=== PATIENT | male | born 1970 | race Caucasian/White ===

== ENCOUNTER 2016-12-13 06:33 | Emergency (ER) | payer BC, OTHER ==
[2016-12-13 06:56] VITALS: BP 122/78
[2016-12-13] MEDS ORDERED: methylPREDNISolone Sodium Succinate 125 MG/2 ML SDV IVPUSH ONE (07:04)
[2016-12-13] MEDS ORDERED: HYDROmorphone 1 MG/ML Syringe IVPUSH ONE ×2 (07:04→08:05)
--- NOTE | 2016-12-13 07:05 | EDM.PDOC ---
ED HPI GENERAL MEDICAL PROBLEM - General Chief Complaint: Back Pain or Injury Stated Complaint: LOW BACK PAIN Time Seen by Provider: 12/13/16 07:00 Source of Information: Reports: Patient History Limitations: Reports: No Limitations - History of Present Illness INITIAL COMMENTS - FREE TEXT/NARRATIVE: 46-year-old male presents to the ED with acute exacerbation of chronic low back pain. He's been seen by Dr. Knox in [place] spine surgeon who referred him to Dr. Mak who is in the [facility] in [facility]. The plan is to pursue bilateral sacroiliac joint fusion. This would have to be one done one side of the time. Overnight he's expressed an acute exacerbation of pain radiating down his right leg. It's excruciating rates it 10 out of 10. It tends to be lancinating and strongly spastic in nature. He has been taking T still able to void and defecate normally. Is very difficult to get on and off the toilet. Mobility is severely limited by back pain. ramadol when necessary 100 mg every 6 hours with Motrin 800 mg every 8 hours for pain relief. Tizanidine which she doesn't feel is helping his all. Patient is been unable to sleep most of the night. Took 20 minutes just to get out to the car this morning. Of note patient was seen down at [facility] last week had an injection cells like lidocaine into his lower back. This reduces pain substantially for the time the last which is 1/2- 2 hours. Exactly sure where he is going next in terms of surgery until after insurance issues get sorted out and Onset: Gradual (Chronic problems with low back pain worse overnight.) Duration: Chronic, Getting Worse Location: Reports: Back Quality: Reports: Burning (Low back pain with right-sided radiculopathy into the but talk and down the leg to the ankle.), Stabbing, Throbbing Severity: Severe Improves with: Reports: None Worsens with: Reports: Movement Context: Denies: Activity, Exercise, Lifting, Sick Contact, Trauma, Other Associated Symptoms: Reports: Loss of Appetite, Malaise, Nausea/Vomiting. Denies: Chest Pain, Cough, cough w sputum, Diaphoresis, Fever/Chills, Rash ( Nausea without any vomiting due to the intensity of pain.), Seizure, Shortness of Breath Treatments SPECIALIST PHYSICIANS: Reports: NSAIDS (Motrin 800 mg every 8-12 hours.) Right Lower Back Pain Score (Numeric/FACES): 10 - Related Data Allergies Allergy/AdvReac Type Severity Reaction Status Date / Time levofloxacin [From Levaquin] Allergy Swollen Verified 12/13/16 06:49 Eyes pregabalin Allergy SEDATION Verified 12/13/16 06:47 Home Meds: Home Meds ALPRAZolam [Xanax] 1 mg PO BID PRN 11/14/13 [History] Sertraline [Zoloft] 100 mg PO DAILY 11/14/13 [History] tiZANidine HCl [Zanaflex] 12 mg PO Q8H 11/14/13 [History] traMADol HCl [Ultram] 50 mg PO Q6H 11/14/13 [History] Zolpidem [Ambien] 10 mg PO ASDIRECTED PRN 12/05/13 [History] Diazepam [Valium] 5 mg PO TID PRN #21 tablet 12/13/16 [Rx] oxyCODONE HCl/Acetaminophen [Percocet 10-325 mg Tablet] 1 - 2 each PO Q4H PRN # 30 tablet 12/13/16 [Rx] Past Medical History HEENT History: Reports: Glaucoma Musculoskeletal History: Reports: Other (See Below) Other Musculoskeletal History: Fracture L4; fused neck - Past Surgical History HEENT Surgical History: Reports: Adenoidectomy, Tonsillectomy Social & Family History - Tobacco Use Smoking Status *Q: Current Every Day Smoker Years of Tobacco use: 30 Packs/Tins Daily: 0.5 Used Tobacco, but Quit: No Month Tobacco Last Used: presently using Second Hand Smoke Exposure: Yes - Caffeine Use Caffeine Use: Reports: Coffee, Tea - Recreational Drug Use Recreational Drug Use: No - Living Situation & Occupation Living situation: Reports: Occupation: Employed ED ROS GENERAL - Review of Systems Review Of Systems: See Below Constitutional: Reports: Weakness, Fatigue, Decreased Appetite. Denies: Fever, Chills, Malaise, Weight Loss HEENT: Reports: No Symptoms Respiratory: Reports: No Symptoms Cardiovascular: Reports: No Symptoms Endocrine: Reports: No Symptoms GI/Abdominal: Reports: Constipation (Intermittent occasional problems with constipation), Nausea : Reports: No Symptoms Musculoskeletal: Reports: Back Pain, Leg Pain (See history of present illness) Skin: Reports: No Symptoms ( right leg pain referred from his back.) Neurological: Reports: Paresthesia (Sciatica right lower extremity with pins and needles and burning sensation) Psychiatric: Reports: Anxiety Hematologic/Lymphatic: Reports: No Symptoms Immunologic: Reports: No Symptoms ED EXAM,LOWER BACK PAIN/INJURY - Physical Exam Exam: See Below Exam Limited By: No Limitations General Appearance: Alert, Severe Distress (No position is comfortable.) Throat/Mouth: Normal Inspection, Other (Tongue is mildly dry.) Respiratory/Chest: Lungs Clear, Normal Breath Sounds, No Accessory Muscle Use, Respiratory Distress (Mildly tachypneic but he is hyperventilating due to the pain.) Cardiovascular: Normal Peripheral Pulses, Regular Rate, Rhythm, No Edema, No Gallop, No Murmur Back Exam: Normal Inspection, Decreased Range of Motion, Vertebral Tenderness ( Throughout the lumbar vertebrae particularly 34 and 5 bilaterally perhaps worse on the right side over on compression of the facet joints.). No: Full Range of Motion, CVA Tenderness (L), CVA Tenderness (R), Muscle Spasm Extremities: Normal Inspection Neurological: Alert, CN II-XII Intact, Oriented x 3. No: Normal Gait, Normal Reflexes DTR - Lower Extremities: 0: Ankle (R), 1+: Knee (R), Knee (L), Ankle (L) Psychiatric: Anxious, Tearful Skin Exam: Warm, Dry, Intact, Normal Color, No Rash Course - Vital Signs Last Recorded V/S: Last Vital Signs Temp 35.7 C 12/13/16 06:49 Pulse 84 12/13/16 06:49 Resp 22 H 12/13/16 06:49 BP 122/78 12/13/16 06:49 Pulse Ox 98 12/13/16 06:49 - Orders/Labs/Meds Meds: Medications Discontinued Medications Generic Name Dose Route Start Last Admin Trade Name Freq PRN Reason Stop Dose Admin Diazepam 5 mg 12/13/16 07:05 12/13/16 07:21 Valium IVPUSH 12/13/16 07:06 5 mg ONETIME ONE Administration Diazepam 5 mg 12/13/16 09:29 12/13/16 09:33 Valium IVPUSH 12/13/16 09:30 5 mg ONETIME ONE Administration Fentanyl 50 mcg 12/13/16 09:29 12/13/16 09:35 Sublimaze IVPUSH 12/13/16 09:30 50 mcg ONETIME ONE Administration Hydromorphone HCl 1 mg 12/13/16 07:04 12/13/16 07:18 Dilaudid IVPUSH 12/13/16 07:05 1 mg ONETIME ONE Administration Hydromorphone HCl 1 mg 12/13/16 08:05 12/13/16 08:10 Dilaudid IVPUSH 12/13/16 08:06 1 mg ONETIME ONE Administration Dextrose/Sodium Chloride 1,000 mls @ 150 mls/hr 12/13/16 07:15 12/13/16 07:16 Dextrose 5%-Normal Saline IV 150 mls/hr ASDIRECTED JERRELL Administration Ketorolac Tromethamine 30 mg 12/13/16 07:15 12/13/16 07:21 Toradol IVPUSH 30 mg ONETIME JERRELL Administration Methylprednisolone Sodium Succinate 125 mg 12/13/16 07:04 12/13/16 07:23 Solu-Medrol IVPUSH 12/13/16 07:05 125 mg ONETIME ONE Administration - Radiology Interpretation Free Text/Narrative:: 46-year-old male presents to the ED with complaints of increased lower back pain. He is a chronic low back pain issues has been seeing spinal surgeons. 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 Dr. Knox referred him to Dr. Mak at [facility] in [place] whom he did see last week. They're waiting basically permission to go out of [facility] for surgery and insurances to pay for potential SI joint fusion bilaterally. His pain is present all the time but usually controlled with tramadol tizanidine value and high-dose Motrin. Pain started about 2:30 this morning with lancinating shooting pain down the right posterior buttock down his leg which is worsened when he's expressed in the past. No etiology for this site no falls trips or injuries. He has had multiple MRIs of his lower back and therefore imaging is not indicated. He has tried steroid injections with minimal relief. Plan is trying to manage his pain. At present we'll start an IV of D5 normal saline at 150 mils per hour. Given Dilaudid 1 mg IV with Solu-Medrol 125 mg IV and Valium 5 mg IV and Toradol 30 mg IV for acute pain relief. - Re-Assessments/Exams Free Text/Narrative Re-Assessment/Exam: 12/13/16 08:00: Pain still rated as 7 out of 10. Repeat Dilaudid 1 mg IV. 12/13/16 09:29 patient states his pain is essentially unchanged to 7 out of 10. Will try fentanyl 50 g IV and repeat the volume 5 mg IV. I'm not confident will gain control of the pain due to neurogenic source. 12/13/16 10:38 CT of his lumbar spine done without contrast reveals essentially no changes compared to his most recent MRI done here. There are slight circumferential disc bulge at L3-L4 L4-L5 and L5-S1 but no evidence of neural foraminal encroachment is appreciated any of these levels. There is a coincidental finding of a limbus vertebra noted off the anterior and superior endplate of L4 vertebra. He had does not have a complete fusion of his sacrum at S1-S2 level. 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 I suspect it is the S1 nerve root at that is causing his sciatica pain. I will discharge him on Percocet 10//25 milligrams tabs one or 2 every 4-6 hours as needed for pain relief. Valium 5 mg every 8 hours when necessary for muscle spasm. Given to excuse him from the work place for the next 2-3 days. He will follow-up with his normal care provider in 2-3 days time to see how he is making out. Will likely require referral to chronic pain management. Departure - Departure Time of Disposition: 10:54 Disposition: Home, Self-Care 01 Condition: Poor Clinical Impression: Acute exacerbation of chronic low back pain Chronic right-sided low back pain with sciatica Qualifiers: Sciatica laterality: sciatica of right side Qualified Code(s): M54.41 - Lumbago with sciatica, right side - Discharge Information Prescriptions: Diazepam [Valium] 5 mg PO TID PRN #21 tablet PRN Reason: muscle spams back oxyCODONE HCl/Acetaminophen [Percocet 10-325 mg Tablet] 1 - 2 each PO Q4H PRN # 30 tablet PRN Reason: Severe back pain Instructions: Chronic Back Pain Referrals: Kimmie Conklin NP [Primary Care Provider] - Forms: ED Department Discharge, ED Return to Work/School Form Additional Instructions: Evaluation in the emergency him today in regards to acute exacerbation of low back pain with increased pain and right lower back and right-sided sciatica. You 're treated in the emergency room with intravenous Dilaudid and Valium 5 mg with Toradol 30 mg and one dose of Solu-Medrol or steroids reduce pain and inflammation. The Solu-Medrol won't do much for about 6 hours but it should start to reduce some of the inflammation and pain around the nerve that is causing the pain in his leg. I did write a prescription for Percocet tabs 10/ 325 one or 2 every 4-6 hours for acute pain relief over the next 2-3 days until pain settles down. May use Valium 5 mg every 8 hours when necessary for muscle spasm. CT of the lumbar spine does not reveal any changes compared to previous MRI images. There are no evidence of nerve root entrapment at any of the lumbar vertebra levels. I suspect the sacral nerve root at S1 on the right side is inflamed and causing your current right sided leg pain and pain. Then may return to tramadol 50-100 mg every 6 hours for pain relief. Follow-up with personal physician in this regard.
[2016-12-13] MEDS ORDERED: Dextrose 5%-0.9% NaCl 1,000 ML IV SCH (07:15)
[2016-12-13] MEDS ORDERED: Ketorolac 30 MG/ML SDV IVPUSH SCH (07:15)
[2016-12-13] MEDS ORDERED: fentaNYL 100 MCG/2 ML SDV IVPUSH ONE (09:29)
--- NOTE | 2016-12-13 10:34 | CT ---
CT lumbar spine Technique: Multiple axial sections were obtained from above the T12-L1 disc through the L5-S1 disc. Reconstructed coronal and sagittal images were reviewed. Comparison: Previous MRI lumbar spine exam of 06/19/16. Findings: T11-T12: Disc space narrowing is noted with Schmorl node deformities. Posterior disc has a mostly planar margin. No central canal stenosis or neural foraminal stenosis is seen. L1-L2: Schmorl node deformities are seen. Posterior disc is preserved. No central canal stenosis or neural foraminal stenosis is seen. L2-L3: Slight Schmorl node deformities are seen. Posterior disc has a planar margin. No central canal stenosis is seen. Neural foramina appear to be patent. L3-L4: Slight circumferential disc bulge is seen. Minimal degenerative apophyseal change is seen. No central canal stenosis is seen. Neural foramina are patent where the nerve roots exit. Incidental limbus vertebra noted off the anterior and superior endplate of L4. L4-L5: Slight circumferential disc bulge is seen. Posterior disc has a mostly planar margin. No central canal stenosis is seen. Neural foramina are patent where the nerve roots exit. L5-S1: Mild diffuse posterior disc bulge is seen. Neural foramina are patent where the nerve roots exit. No central canal stenosis is seen. No acute fracture or abnormal subluxation is seen. Impression: 1. Mild degenerative change as noted above. No focal disc herniation, central canal stenosis or neural foraminal stenosis is seen. 2. Findings are fairly stable from prior MRI lumbar spine study of 06/19/16. Diagnostic code #2
== END 2016-12-13 11:26 | disposition home or self-care (01) ==
LOC: JD.ED 06:33
DX: M54.41 Lumbago with sciatica, right side (principal); F17.210 Nicotine dependence, cigarettes, uncomplicated; Z79.899 Other long term (current) drug therapy; Z88.8 Allergy status to other drugs, medicaments and biological substances
CPT/HCPCS: 72131; 96361; 96374; 96375; 96376; 99284; J1170; J1885; J2930; J3010; J3360; J7042

== ENCOUNTER 2017-01-09 13:29 | Emergency (ER) | payer BC, OTHER ==
[2017-01-09] MEDS ORDERED: predniSONE 20 MG Tab PO ONE (14:17)
[2017-01-09] MEDS ORDERED: Ketorolac 60 MG/2 ML SDV IM ONE (14:17)
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
[2017-01-09 16:10] VITALS: BP 97/78
== END 2017-01-09 14:55 | disposition home or self-care (01) ==
LOC: JD.ED 13:29
DX: M53.3 Sacrococcygeal disorders, not elsewhere classified (principal); M54.42 Lumbago with sciatica, left side; M54.41 Lumbago with sciatica, right side; G89.29 Other chronic pain; F17.210 Nicotine dependence, cigarettes, uncomplicated; Z79.899 Other long term (current) drug therapy; Z88.1 Allergy status to other antibiotic agents; Z88.8 Allergy status to other drugs, medicaments and biological substances
CPT/HCPCS: 96372; 99283; A9270; J1885

== ENCOUNTER 2021-08-06 07:29 | Day surgery (SDC) | payer BC ==
[~2021-08-06 07:29] MED LIST: EPINEPHrine 1 MG/ML 30 ML MDV IRR SCH; Lactated Ringers 1,000 ML IV SCH; Lidocaine 1%/Sod Bicarbonate in NS 8.4% 1 ML Syringe IDERM PRN; Sodium Chloride 0.9% 10 ML Syringe FLUSH PRN; Sodium Chloride 0.9% 10 ML Syringe FLUSH SCH
[2021-08-06] MEDS ORDERED: Bupivacaine 0.25% 10 ML SDV ONE (08:44)
[2021-08-06] MEDS ORDERED: Propofol 200 MG/20 ML SDV ONE (08:45)
[2021-08-06] MEDS ORDERED: Lidocaine 1% 4 ML ONE (08:45)
[2021-08-06] MEDS ORDERED: fentaNYL 100 MCG/2 ML SDV ONE (08:45)
[2021-08-06] MEDS ORDERED: Ondansetron 4 MG/2 ML SDV IVPUSH PRN (08:58)
[2021-08-06] MEDS ORDERED: HYDROmorphone 0.5 MG/0.5 ML Syringe IVPUSH PRN (08:58)
[2021-08-06] MEDS ORDERED: fentaNYL 100 MCG/2 ML SDV IVPUSH PRN (08:58)
[2021-08-06] MEDS ORDERED: Ondansetron 4 MG/2 ML SDV ONE (09:24)
[2021-08-06] MEDS ORDERED: Ketorolac 30 MG/ML SDV ONE (09:24)
[2021-08-06] MEDS ORDERED: ceFAZolin 1 GM Vial ONE (09:47)
[2021-08-06] MEDS ORDERED: HYDROmorphone 0.5 MG/0.5 ML Syringe ONE ×3 (09:50→09:55)
[2021-08-06] MEDS ORDERED: oxyCODONE 5 MG Tab PO ONE (10:50)
[2021-08-06 13:54] VITALS: BP 120/78; PULSE 72
== END 2021-08-06 12:40 | disposition home or self-care (01) ==
LOC: JD.SDS 07:29
PROVIDERS: ATTEND Orthopaedic Surgery
DX: S83.242A Other tear of medial meniscus, current injury, left knee, initial encounter (principal); M94.262 Chondromalacia, left knee; F32.A Depression, unspecified; F41.9 Anxiety disorder, unspecified; E78.2 Mixed hyperlipidemia; G47.33 Obstructive sleep apnea (adult) (pediatric); F17.210 Nicotine dependence, cigarettes, uncomplicated; F51.04 Psychophysiologic insomnia; M54.16 Radiculopathy, lumbar region; E66.9 Obesity, unspecified; Z68.29 Body mass index [BMI] 29.0-29.9, adult; Z88.8 Allergy status to other drugs, medicaments and biological substances; Z79.899 Other long term (current) drug therapy; Z90.49 Acquired absence of other specified parts of digestive tract; Z98.890 Other specified postprocedural states
CPT/HCPCS: 29881; A9270; J0171; J0690; J1170; J1885; J2405; J2704; J3010; J3490; J7120; 01400

== ENCOUNTER 2021-09-11 05:50 | Day surgery (SDC) | payer BC ==
[~2021-09-11 05:50] MED LIST changes: -EPINEPHrine 1 MG/ML 30 ML MDV IRR SCH
[2021-09-11] MEDS ORDERED: fentaNYL 100 MCG/2 ML SDV ONE ×2 (05:59→07:01)
[2021-09-11] MEDS ORDERED: Propofol 200 MG/20 ML SDV ONE (05:59)
[2021-09-11] MEDS ORDERED: Midazolam 1 MG/ML 2 ML SDV ONE (05:59)
[2021-09-11] MEDS ORDERED: Bupivacaine 0.25% 10 ML SDV ONE ×2 (06:21→06:38)
[2021-09-11] MEDS ORDERED: Lidocaine 1% 30 ML SDV ONE (06:21)
[2021-09-11 07:35] VITALS: BP 106/63; PULSE 86
[2021-09-11] MEDS ORDERED: ceFAZolin 2 GM Vial ONE (07:59)
[2021-09-11] MEDS ORDERED: Ondansetron 4 MG/2 ML SDV ONE (08:00)
[2021-09-11] MEDS ORDERED: Dexamethasone 4 MG/ML 5 ML MDV ONE (08:00)
== END 2021-09-11 08:10 | disposition home or self-care (01) ==
LOC: JD.SDS 05:50
PROVIDERS: ATTEND Orthopaedic Surgery
DX: G56.13 Other lesions of median nerve, bilateral upper limbs (principal); F32.A Depression, unspecified; F41.9 Anxiety disorder, unspecified; G47.33 Obstructive sleep apnea (adult) (pediatric); G89.29 Other chronic pain; F17.210 Nicotine dependence, cigarettes, uncomplicated; G47.00 Insomnia, unspecified; E66.9 Obesity, unspecified; E78.00 Pure hypercholesterolemia, unspecified; Z88.8 Allergy status to other drugs, medicaments and biological substances; Z90.49 Acquired absence of other specified parts of digestive tract; Z79.899 Other long term (current) drug therapy
CPT/HCPCS: 20526; J2250; J2704; J3010; J3490; J7120; 01810; J0690; J1100; J2405

== ENCOUNTER 2022-01-05 06:46 | Day surgery (SDC) | payer BC ==
[~2022-01-05 06:46] MED LIST changes: +Acetaminophen 325 MG Tab PO SCH; +Morphine 8 MG, EPINEPHrine 0.3 MG, Cefuroxime 750 MG, Ketorolac 30 MG, Sodium Chloride ... PRN; +oxyCODONE ER 10 MG TAB.ER PO SCH
[2022-01-05] MEDS ORDERED: Tranexamic Acid 1,000 MG/10 ML Vial ONE (06:48)
[2022-01-05] MEDS ORDERED: Vancomycin 1 GM SDV ONE (06:48)
[2022-01-05] MEDS ORDERED: fentaNYL 100 MCG/2 ML SDV IVPUSH PRN (07:42)
[2022-01-05] MEDS ORDERED: Ondansetron 4 MG/2 ML SDV IVPUSH PRN (07:42)
[2022-01-05] MEDS ORDERED: HYDROmorphone 0.5 MG/0.5 ML Syringe IVPUSH PRN (07:42)
[2022-01-05] MEDS ORDERED: Midazolam 1 MG/ML 2 ML SDV ONE (07:47)
[2022-01-05] MEDS ORDERED: Propofol 200 MG/20 ML SDV ONE ×3 (07:47→10:34)
[2022-01-05] MEDS ORDERED: fentaNYL 100 MCG/2 ML SDV ONE (07:47)
[2022-01-05] MEDS ORDERED: Ondansetron 4 MG/2 ML SDV ONE (07:52)
[2022-01-05] MEDS ORDERED: ceFAZolin 2 GM Vial ONE (07:52)
[2022-01-05] MEDS ORDERED: Phenylephrine HCl In 0.9% NaCl 1 MG/10 ML Vial ONE (09:45)
[2022-01-05] MEDS ORDERED: Lactated Ringers 1,000 ML ONE (10:26)
[2022-01-05] MEDS ORDERED: ePHEDrine 50 MG/ML SDV ONE (10:36)
[2022-01-05] MEDS ORDERED: Dexmedetomidine 200 MCG/2 ML SDV ONE (10:45)
[2022-01-05] MEDS ORDERED: Esmolol 100 MG/10 ML SDV ONE (11:01)
[2022-01-05] MEDS ORDERED: Ropivacaine 0.5% 5 MG/ML 30 ML SDV ONE (11:16)
[2022-01-05] MEDS ORDERED: EPINEPHrine 1 MG/ML SDV ONE (11:16)
[2022-01-05] MEDS ORDERED: Lidocaine 1% 2 ML ONE (11:17)
[2022-01-05] MEDS ORDERED: oxyCODONE 5 MG Tab PO SCH (11:40)
[2022-01-05 14:42] VITALS: BP 128/74; PULSE 86
== END 2022-01-05 14:15 | disposition home or self-care (01) ==
LOC: JD.SDS 06:46
PROVIDERS: ATTEND Orthopaedic Surgery
DX: M17.12 Unilateral primary osteoarthritis, left knee (principal); F41.9 Anxiety disorder, unspecified; F32.A Depression, unspecified; G47.33 Obstructive sleep apnea (adult) (pediatric); F17.210 Nicotine dependence, cigarettes, uncomplicated; E78.00 Pure hypercholesterolemia, unspecified; K21.9 Gastro-esophageal reflux disease without esophagitis; E66.9 Obesity, unspecified; Z68.41 Body mass index [BMI] 40.0-44.9, adult; Z79.899 Other long term (current) drug therapy; Z88.1 Allergy status to other antibiotic agents; Z88.8 Allergy status to other drugs, medicaments and biological substances; Z90.49 Acquired absence of other specified parts of digestive tract; Z98.890 Other specified postprocedural states; Z79.82 Long term (current) use of aspirin
CPT/HCPCS: 01402; 64450; 73560-26-LT; 73560-LT; 76942; 97110-GP; 97116-GP; 97161-GP; A9270-GY; C1713; C1776; J0171; J0690; J0697; J1885; J2250; J2270; J2405; J2704; J2795; J3010; J3370; J3490; J7120

== ENCOUNTER 2022-10-26 06:12 | Day surgery (SDC) | payer BC ==
[~2022-10-26 06:12] MED LIST changes: -Acetaminophen 325 MG Tab PO SCH; +Bupivacaine 0.25% 10 ML SDV ONE; +Lidocaine 1% 10 ML MDV ONE; -Lidocaine 1%/Sod Bicarbonate in NS 8.4% 1 ML Syringe IDERM PRN; -Morphine 8 MG, EPINEPHrine 0.3 MG, Cefuroxime 750 MG, Ketorolac 30 MG, Sodium Chloride ... PRN; -oxyCODONE ER 10 MG TAB.ER PO SCH
[2022-10-26] MEDS ORDERED: Lidocaine 2% 100 MG/5 ML Syringe ONE (06:41)
[2022-10-26] MEDS ORDERED: fentaNYL 100 MCG/2 ML SDV ONE (06:41)
[2022-10-26] MEDS ORDERED: Midazolam 1 MG/ML 2 ML SDV ONE (06:41)
[2022-10-26] MEDS ORDERED: Propofol 200 MG/20 ML SDV ONE (06:42)
[2022-10-26] MEDS ORDERED: Bupivacaine 0.25% 10 ML SDV ONE (06:43)
[2022-10-26] MEDS ORDERED: Triamcinolone Acetonide 40 MG/ML 1 ML SDV ONE (06:43)
[2022-10-26 09:22] VITALS: BP 119/70; PULSE 84
[2022-10-26] MEDS ORDERED: ceFAZolin 2 GM Vial ONE (11:22)
== END 2022-10-26 07:53 | disposition home or self-care (01) ==
LOC: JD.SDS 06:12
PROVIDERS: ATTEND Orthopaedic Surgery
DX: G56.01 Carpal tunnel syndrome, right upper limb (principal); M17.11 Unilateral primary osteoarthritis, right knee; M54.2 Cervicalgia; G89.29 Other chronic pain; F32.A Depression, unspecified; F41.9 Anxiety disorder, unspecified; M54.50 Low back pain, unspecified; G47.33 Obstructive sleep apnea (adult) (pediatric); E78.2 Mixed hyperlipidemia; F51.04 Psychophysiologic insomnia; E66.9 Obesity, unspecified; Z96.652 Presence of left artificial knee joint; Z88.1 Allergy status to other antibiotic agents; Z88.8 Allergy status to other drugs, medicaments and biological substances; Z79.899 Other long term (current) drug therapy; Z87.891 Personal history of nicotine dependence
CPT/HCPCS: 20610; 64721; J0690; J2250; J2704; J3010; J3301; J3490; J7120; 01810

== ENCOUNTER 2022-12-28 20:39 | Emergency (ER) | payer BC ==
[2022-12-28] MEDS ORDERED: Sodium Chloride 0.9% 10 ML Syringe FLUSH PRN (20:52)
[2022-12-28] MEDS ORDERED: Ondansetron 4 MG/2 ML SDV IVPUSH ONE (20:53)
[2022-12-28] MEDS ORDERED: Lactated Ringers 1,000 ML IV SCH (21:00)
[2022-12-28 21:23] LABS: BASOPHILS PERCENT AUTO 0.3 % (0.0-1.0); EOSINOPHILS PERCENT AUTO 0.3 % (0.0-6.0); HEMOGLOBIN 16.1 gm/dl (14.0-18.0); IMMATURE GRAN ABSOLUTE AUTO 0.05 K/mm3 (0.00-0.05); IMMATURE GRAN PERCENT AUTO 0.4 % (0.0-0.4); LYMPHOCYTES ABSOLUTE AUTO 0.6 K/mm3 (1.0-4.8); LYMPHOCYTES PERCENT AUTO 4.8 % (24.0-44.0); MEAN CORPUSCULAR HEMOGLOBIN 29.4 pg (28.0-32.0); MEAN CORPUSCULAR HGB CONC 34.3 g/dl (32.0-36.0); MEAN CORPUSCULAR VOLUME 85.9 fl (83.0-99.0); MEAN PLATELET VOLUME 9.7 fl (9.4-12.4); MONOCYTES ABSOLUTE AUTO 0.5 K/mm3 (0.0-0.8); MONOCYTES PERCENT AUTO 4.5 % (0.0-8.0); NEUTROPHILS ABSOLUTE AUTO 10.8 K/mm3 (1.8-7.7); NEUTROPHILS PERCENT AUTO 89.7 % (41.0-71.0); PLATELET COUNT,PLT 336 K/mm3 (150-400); RED BLOOD CELL COUNT 5.47 M/mm3 (4.52-5.90); WHITE BLOOD CELL COUNT,WBC 12.04 K/mm3 (3.9-11.3)
[2022-12-28] MEDS ORDERED: Ketorolac 30 MG/ML SDV IVPUSH ONE (21:36)
[2022-12-28 21:44] LABS: A/G RATIO 1.1 (1-2); ALBUMIN 3.8 g/dl (3.4-5.0); ANION GAP 18.2 (5-15); BILIRUBIN TOTAL 0.7 mg/dL (0.2-1.0); BUN/CREATININE RATIO 18.8 (14-18); C-REACTIVE PROTEIN 5.7 mg/dL (<1.0); CALCIUM 8.9 mg/dL (8.5-10.1); CREATININE 1.7 mg/dL (0.7-1.3); EST CRCL DRUG DOSING (CG) 53.68 mL/min; POTASSIUM,K 4.2 mEq/L (3.5-5.1); PROTEIN TOTAL,TP 7.4 g/dl (6.4-8.2)
[2022-12-28] MEDS ORDERED: Naloxone 0.4 MG/ML SDV IVPUSH PRN ×2 (22:05→22:43)
[2022-12-28] MEDS ORDERED: HYDROmorphone 0.5 MG/0.5 ML Syringe IVPUSH ONE ×2 (22:05→22:43)
[2022-12-28] MEDS ORDERED: Lactated Ringers 1,000 ML IV ONE (22:17)
[2022-12-28 22:29] LABS: CORONAVIRUS COVID-19 NAA NEGATIVE (NEGATIVE); INFLUENZA A NAA NEGATIVE (NEGATIVE)
[2022-12-28 23:27] VITALS: BP 125/75; PULSE 80
== END 2022-12-28 23:35 | disposition home or self-care (01) ==
LOC: JD.ED 20:39
DX: E86.0 Dehydration (principal); R51.9 Headache, unspecified; R11.2 Nausea with vomiting, unspecified; R19.7 Diarrhea, unspecified; E78.00 Pure hypercholesterolemia, unspecified; E66.9 Obesity, unspecified; Z68.32 Body mass index [BMI] 32.0-32.9, adult; Z88.1 Allergy status to other antibiotic agents; Z79.899 Other long term (current) drug therapy; Z20.822 Contact with and (suspected) exposure to COVID-19
CPT/HCPCS: 0240U; 36415; 80053; 83690; 85025; 86140; 96361; 96374; 96375; 96376; 99284; J1170; J2405; J7120

== ENCOUNTER 2024-02-16 06:15 | Day surgery (SDC) | payer BC ==
[~2024-02-16 06:15] MED LIST changes: -Bupivacaine 0.25% 10 ML SDV ONE; -Lactated Ringers 1,000 ML IV SCH; -Lidocaine 1% 10 ML MDV ONE
[2024-02-16] MEDS ORDERED: Propofol 200 MG/20 ML SDV ONE ×5 (06:23→09:16)
[2024-02-16] MEDS ORDERED: fentaNYL 100 MCG/2 ML SDV ONE ×2 (06:24→09:53)
[2024-02-16] MEDS: Lactated Ringers 1,000 ML IV SCH (06:40)
[2024-02-16] MEDS ORDERED: Midazolam 1 MG/ML 2 ML SDV ONE (06:47)
[2024-02-16] MEDS ORDERED: ceFAZolin 2 GM Vial ONE (06:48)
[2024-02-16] MEDS ORDERED: EPINEPHrine 1 MG/ML SDV ONE (06:50)
[2024-02-16] MEDS ORDERED: Ropivacaine 0.5% 5 MG/ML 30 ML SDV ONE (06:52)
[2024-02-16] MEDS ORDERED: Dexamethasone 4 MG/ML 5 ML MDV ONE (06:52)
[2024-02-16] MEDS ORDERED: dexmedeTOMIDine HCl 200 MCG/2 ML SDV ONE (06:52)
[2024-02-16] MEDS: oxyCODONE ER 10 MG TAB.ER PO SCH (07:19)
[2024-02-16] MEDS: Acetaminophen 325 MG Tab PO SCH (07:19)
[2024-02-16] MEDS ORDERED: Lactated Ringers 1,000 ML ONE (08:17)
[2024-02-16] MEDS ORDERED: ePHEDrine 50 MG/ML SDV ONE ×2 (08:36→09:02)
[2024-02-16] MEDS: Morphine 8 MG, EPINEPHrine 0.3 MG, Cefuroxime 750 MG, Ketorolac 30 MG, Sodium Chloride ... PRN (09:10)
[2024-02-16] MEDS: Tranexamic Acid 1,000 MG/10 ML Vial ONE (09:15)
[2024-02-16] MEDS: VANCOmycin 1 GM SDV ONE (09:15)
[2024-02-16] MEDS ORDERED: Ondansetron 4 MG/2 ML SDV IVPUSH PRN (09:57)
[2024-02-16] MEDS ORDERED: Ketorolac 30 MG/ML SDV IVPUSH SCH (10:00)
[2024-02-16] MEDS: HYDROmorphone 0.5 MG/0.5 ML Syringe IVPUSH PRN (10:06)
[2024-02-16] MEDS: fentaNYL 100 MCG/2 ML SDV IVPUSH PRN (10:06)
[2024-02-16] MEDS: oxyCODONE 5 MG Tab PO PRN (11:45)
[2024-02-16 16:46] VITALS: BP 136/86; PULSE 98
== END 2024-02-16 16:35 | disposition home or self-care (01) ==
LOC: JD.SDS 06:15
PROVIDERS: ATTEND Orthopaedic Surgery
DX: M17.11 Unilateral primary osteoarthritis, right knee (principal); E78.2 Mixed hyperlipidemia; F32.A Depression, unspecified; F41.9 Anxiety disorder, unspecified; G47.33 Obstructive sleep apnea (adult) (pediatric); Z87.891 Personal history of nicotine dependence
CPT/HCPCS: 0055T; 27447; 64447; 73560; 97116; 97161; A9270; J0171; J0690; J0697; J1100; J1171; J1885; J2250; J2272; J2704; J2795; J3010; J7120; J3490